=== PATIENT | male | born 1945 | race Caucasian/White ===

== ENCOUNTER 2016-06-19 08:26 | Inpatient (IN) | payer OTHER ==
[~2016-06-19] VITALS: Ht 182.9 cm; Wt 94.1 kg
[~2016-06-19 08:26] MED LIST: ARMOUR THYROID60 M1 PO; CARVEDILOL12.5 MG PO; FLOMAX0.4 MG PO; FUROSEMIDE40 MG PO; KLOR-CON20 MEQ PO; LISINOPRIL2.5 MG PO; PERCOCET 5/31 TABLET PO; ZOFRAN4 MG PO
[2016-06-19] MEDS ORDERED: ASPIRIN325 MG PO (09:43)
[2016-06-19 15:42] VITALS: BP 137/77
[2016-06-19 18:14] VITALS: BP 154/85
[2016-06-19 20:00] VITALS: BP 136/89
[2016-06-19 20:05] VITALS: BP 156/90
[2016-06-19] MEDS ORDERED: AMBIEN CR6.25 MG PO (20:28)
[2016-06-20 00:44] VITALS: BP 129/78
[2016-06-20 04:30] VITALS: BP 133/79
[2016-06-20 07:15] LABS: ANION GAP 9 MEQ/L (2-14); CHLORIDE 105 MEQ/L (99-109); GFR ESTIMATE (CALCULATED) 58 mL/min/; GLUCOSE 103 mg/dL (70-99); POTASSIUM 3.7 MEQ/L (3.7-5.4); SAMPLE HEMOLYSIS CHECK 0; SAMPLE ICTERIC CHECK 0; SAMPLE LIPEMIA CHECK 0; SODIUM 145 MEQ/L (136-147); UREA NITROGEN (BUN) 23 mg/dL (9-23)
[2016-06-20 07:48] LABS: MCH 30.2 PG (29.0-34.0); MCHC 32.7 G/DL (30.0-36.0); MCV 92.6 FL (86-99); MEAN PLAT.VOLUME 11.8 uM^3 (9.0-12.4); PLATELET COUNT 154 K/uL (156-360); RBC DIS.WIDTH-CV 14.1 % (11.8-14.6); RBC DIS.WIDTH-SD 47.6 % (39-53); RED BLOOD COUNT 4.43 M/uL (4.00-5.50); WHITE BLOOD COUNT 8.2 K/uL (4.1-10.2)
[2016-06-20 07:57] VITALS: BP 142/80
[2016-06-20 11:44] VITALS: BP 121/71
[2016-06-20 15:57] VITALS: BP 132/80
[2016-06-20 19:19] VITALS: BP 142/74
[2016-06-21 00:50] VITALS: BP 139/76
[2016-06-21 04:29] VITALS: BP 133/70
[2016-06-21 07:11] LABS: ALKALINE PHOSPHATASE 91 IU/L (3-129); ANION GAP 9 MEQ/L (2-14); CHLORIDE 104 MEQ/L (99-109); GFR ESTIMATE (CALCULATED) 53 mL/min/; GLUCOSE 133 mg/dL (70-99); POTASSIUM 3.9 MEQ/L (3.7-5.4); SAMPLE HEMOLYSIS CHECK 0; SAMPLE ICTERIC CHECK 0; SAMPLE LIPEMIA CHECK 0; SODIUM 143 MEQ/L (136-147); UREA NITROGEN (BUN) 27 mg/dL (9-23)
[2016-06-21 07:54] VITALS: BP 125/73
[2016-06-21 12:00] VITALS: BP 127/75
[2016-06-21 17:23] VITALS: BP 115/64
[2016-06-21 21:00] VITALS: BP 131/73
[2016-06-22 00:40] VITALS: BP 142/81
[2016-06-22 05:05] VITALS: BP 139/76
[2016-06-22 08:00] VITALS: BP 133/78
[2016-06-22 11:03] LABS: ANION GAP 8 MEQ/L (2-14); CHLORIDE 104 MEQ/L (99-109); POTASSIUM 4.1 MEQ/L (3.7-5.4); SAMPLE HEMOLYSIS CHECK 0; SAMPLE ICTERIC CHECK 0; SAMPLE LIPEMIA CHECK 0; SODIUM 141 MEQ/L (136-147)
[2016-06-22 11:09] LABS: GFR ESTIMATE (CALCULATED) 53 mL/min/; GLUCOSE 167 mg/dL (70-99); UREA NITROGEN (BUN) 25 mg/dL (9-23)
[2016-06-22] MEDS ORDERED: LISINOPRIL20 MG PO (12:00)
[2016-06-22] MEDS ORDERED: LO-DOSE ASPIRIN81 M2 PO (12:00)
[2016-06-22] MEDS ORDERED: SPIRONOLACTONE25 MG PO (12:00)
[2016-06-22] MEDS ORDERED: K-DUR10 MEQ PO (12:00)
== END 2016-06-22 14:30 | disposition home or self-care (01) | DRG 287 ==
LOC: CATH 08:26 → 4EAST 11:21 → 2SOUTH 11:21 → 4EAST 11:21 → 2SOUTH 11:21 → 4EAST 15:23
PROVIDERS: Internal Medicine Cardiovascular Disease
DX: I50.23 Acute on chronic systolic (congestive) heart failure (principal); I47.1 Supraventricular tachycardia; I42.0 Dilated cardiomyopathy; I97.710 Intraoperative cardiac arrest during cardiac surgery; I11.0 Hypertensive heart disease with heart failure; I44.7 Left bundle-branch block, unspecified; I48.92 Unspecified atrial flutter; E03.9 Hypothyroidism, unspecified; Z79.82 Long term (current) use of aspirin; E78.5 Hyperlipidemia, unspecified
CPT/HCPCS: 71020; 80048; 80053; 85027; 93005; C1769; C1887; C1894; G0378; J0461; J1644; J1940; J2250; J3010; J7050